=== PATIENT | female | born 1945 | race American Indian/Alaskan Native ===

== ENCOUNTER → 2016-10-03 | Outpatient (CLI) | payer MEDICARE, OTHER | DX: F41.8 Other specified anxiety disorders (principal) | CPT/HCPCS: 90833; G0463 ==

== ENCOUNTER → 2016-11-01 | Outpatient (CLI) | payer MEDICARE, OTHER | PROVIDERS: ATTEND Nurse Practitioner Family | DX: F41.8 Other specified anxiety disorders (principal) | CPT/HCPCS: 90833; G0463 ==

== ENCOUNTER 2024-02-21 06:19 | Day surgery (SDC) | payer MEDICARE, OTHER ==
[~2024-02-21 06:19] MED LIST: Sodium Chloride 0.9% 10 ML Syringe FLUSH PRN; Sodium Chloride 0.9% 2.5 ML Syringe FLUSH PRN; Sodium Chloride 0.9% 20 ML SDV IV PRN
[2024-02-21] MEDS: Lactated Ringers 1,000 ML IV SCH (06:59)
[2024-02-21] MEDS ORDERED: propofoL 50 ML ONE (07:36)
[2024-02-21] MEDS ORDERED: Water For Injection, Sterile 20 ML ONE (07:37)
[2024-02-21] MEDS ORDERED: dexmedeTOMIDine HCl 200 MCG/2 ML SDV ONE (07:37)
[2024-02-21] MEDS ORDERED: Lidocaine 4% 5 ML Amp ONE (07:43)
[2024-02-21] MEDS ORDERED: ePHEDrine 50 MG/ML SDV ONE (08:22)
[2024-02-21] MEDS ORDERED: Phenylephrine HCl In 0.9% NaCl 1 MG/10 ML Syringe ONE (08:26)
[2024-02-21] MEDS ORDERED: Propofol 200 MG/20 ML SDV ONE (08:41)
== END 2024-02-21 09:50 | disposition home or self-care (01) ==
LOC: MW.SDS 06:19
PROVIDERS: ATTEND Surgery
DX: D12.2 Benign neoplasm of ascending colon (principal); D12.3 Benign neoplasm of transverse colon; D12.4 Benign neoplasm of descending colon; D12.5 Benign neoplasm of sigmoid colon; K62.1 Rectal polyp; K44.9 Diaphragmatic hernia without obstruction or gangrene; K57.30 Diverticulosis of large intestine without perforation or abscess without bleeding; F41.9 Anxiety disorder, unspecified; K21.9 Gastro-esophageal reflux disease without esophagitis; I10 Essential (primary) hypertension; E78.5 Hyperlipidemia, unspecified; Z79.899 Other long term (current) drug therapy
CPT/HCPCS: 43239; 45380; 45385; J2371; J2704; J7120; J3490